=== PATIENT | female | born 1950 | race Caucasian/White ===

== ENCOUNTER 2018-06-19 17:44 | Emergency (ER) | payer MEDICARE, MEDICAID ==
[~2018-06-19] VITALS: Ht 157.5 cm; Wt 73.0 kg
[2018-06-19] MEDS ORDERED: ACETAMINOPHEN 325MG TABLET PO ONE (18:30)
[2018-06-19] MEDS ORDERED: TRAMADOL 50MG TABLET PO ONE (20:45)
[2018-06-19 21:11] VITALS: BP 110/61
== END 2018-06-19 21:14 | disposition home or self-care (01) ==
LOC: ER 17:44
DX: S42.301A Unspecified fracture of shaft of humerus, right arm, initial encounter for closed fracture (principal); X58.XXXA Exposure to other specified factors, initial encounter; Y93.89 Activity, other specified; Y92.89 Other specified places as the place of occurrence of the external cause; W01.0XXA Fall on same level from slipping, tripping and stumbling without subsequent striking against object, initial encounter; Y93.01 Activity, walking, marching and hiking; Y92.014 Private driveway to single-family (private) house as the place of occurrence of the external cause; I10 Essential (primary) hypertension
CPT/HCPCS: 29105; 73060; 73070; 99283; A4565

== ENCOUNTER 2021-12-10 00:39 | Emergency (ER) | payer MEDICARE, MEDICAID ==
[~2021-12-10] VITALS: Ht 172.7 cm; Wt 87.0 kg
[2021-12-10 01:24] LABS: HEMATOCRIT. 39.9 % (36.0-48.0); HEMOGLOBIN. 13.6 g/dL (12.0-16.0); MEAN CORPUSCULAR HEMOGLOBIN 31.6 pg (28.0-32.0); MEAN CORPUSCULAR VOLUME 93.1 fL (81.0-99.0); MEAN PLATELET VOLUME 10.2 fl (7.4-10.4); PLATELET 63 x1000/uL (130-400); RED BLOOD CELL COUNT 4.29 mill/uL (4.2-5.4); RED CELL DISTRIBUTION WIDTH 13.7 % (11.6-14.6)
[2021-12-10 01:27] LABS: CHLORIDE 104 mEq/L (98-107)
[2021-12-10 01:49] LABS: BG BASE EXCESS -17.1 mmol/L (-2.0-2.0); BG CARBOXYHEMOGLOBIN 0.2 % (0.5-1.5); BG DEOXYHEMOGLOBIN 2.5 % (0.0-5.0); BG FRACTION INSPIRED OXYGEN 100; BG HCO3 ACT 7.7 mmol/L (22.0-26.0); BG METHEMOGLOBIN 0.1 % (0.0-1.5); BG OXYGEN SATURATION 97.5 % (92.0-98.5); BG OXYHEMOGLOBIN 97.2 % (94.0-97.0); BG PCO2 18.2 mmHg (35.0-45.0); BG PH 7.247 (7.350-7.450); BG PO2 109.6 mmHg (75.0-100.0); BG SAMPLE SITE LEFT RADIAL; BG VENT MODE MASK - NRB
[2021-12-10] MEDS ORDERED: DILTIAZEM HCL 5MG/ML 5ML VIAL IV NR (02:00)
[2021-12-10] MEDS ORDERED: POTASSIUM CHLORIDE 20MEQ TABLET SR PO NR (02:00)
[2021-12-10] MEDS ORDERED: DILTIAZEM 125MG/125ML PMX 125 ML IV NR (02:00)
[2021-12-10] MEDS: SODIUM CHLORIDE 0.9% 1,000 ML IV NR ×2 (02:00→02:11)
[2021-12-10] MEDS ORDERED: ASPIRIN 81MG TABLET PO ONE (02:00)
[2021-12-10] MEDS ORDERED: HEPARIN 25,000 UNITS PREMIX 250 ML IV ONE (02:15)
[2021-12-10 02:30] VITALS: BP 109/74
[2021-12-10] MEDS ORDERED: EPINEPHRINE 10 MG in SODIUM CHLORIDE 0.9% 240 ML IV STA (02:58)
[2021-12-10] MEDS ORDERED: FENTANYL CITRATE/PF 50MCG/ML 2ML VIAL IV ONE (03:15)
[2021-12-10] MEDS ORDERED: HEPARIN 60 UNITS/KG BOLUS IV NR (03:15)
[2021-12-10] MEDS ORDERED: EPINEPHRINE 10 MG in SODIUM CHLORIDE 0.9% 240 ML IV NR (03:15)
[2021-12-10] MEDS ORDERED: HEPARIN 25,000 UNITS PREMIX 250 ML IV SCH (03:30)
[2021-12-10] MEDS ORDERED: FENTANYL CITRATE/PF 50MCG/ML 2ML VIAL IV NR (03:30)
[2021-12-10 03:49] LABS: PLATELET ESTIMATE DECREASED
[2021-12-10] MEDS ORDERED: HEPARIN BOLUS PRN aPTT <30 IV (09:00)
[2021-12-10] MEDS ORDERED: HEPARIN BOLUS PRN aPTT 30-44 IV (09:00)
== END 2021-12-10 03:44 ==
LOC: ER 00:39
DX: J96.90 Respiratory failure, unspecified, unspecified whether with hypoxia or hypercapnia (principal); I25.10 Atherosclerotic heart disease of native coronary artery without angina pectoris; R77.8 Other specified abnormalities of plasma proteins; I45.2 Bifascicular block; I10 Essential (primary) hypertension; E11.9 Type 2 diabetes mellitus without complications; Z95.5 Presence of coronary angioplasty implant and graft
CPT/HCPCS: 31500; 36415; 36600; 71045; 80053; 82010; 82375; 82805; 83605; 83880; 84484; 85025; 85730; 93005; 96374; 96375; 99291; J1644; J3010; J3490; J7050; 94002